=== PATIENT | male | born 1975 | race Caucasian/White ===

== ENCOUNTER 2016-10-09 16:29 | Emergency (ER) | payer SELFPAY ==
[2016-10-09 16:38] VITALS: BP 127/68
[2016-10-09] MEDS ORDERED: Ketorolac INJ* 60 MG/2 ML VIAL IM ONE (16:57)
--- NOTE | 2016-10-09 17:06 | UC ---
Back Pain HPI - HPI Summary HPI Summary: 41 y/o male presents to the urgent care c/o acute lower back pain s/p slipping and falling on the RT hip 2 days ago. His gave him Gabapentin yesterday which helped w/ the pain. This morning Pain was exacerbated when he was mowing the grass. Pain is 8/10 w/o any radiation. Pt denies urinary or fecal incontinence, saddle anesthesia, numbness or tingling over the lower extremities , SOB, chest pain, N/V/D. Pt has not other complains. - History of Current Complaint Chief Complaint: UCBackPain Stated Complaint: BACK INJURY Time Seen by Provider: 10/09/16 16:49 Hx Obtained From: Patient Onset/Duration: Sudden Onset, Lasting Days, Still Present Timing: Constant Severity Initially: Moderate Severity Currently: Moderate Pain Intensity: 8 Pain Scale Used: 0-10 Numeric Character: Sharp - Lower back pain, Spasmodic Aggravating: Movement, Lifting, Bending Alleviating: Rest Associated Signs And Symptoms: Positive: Negative. Negative: Swelling, Redness , Fever, Weakness, Numbness, Tingling, Flank Pain, Bladder Incontinence, Bowel Incontinence, Pain with Weight Bearing - Risk Factors AAA Risk Factors: Negative TAD Risk Factors: Negative Cauda Equina Risk Factors: Negative Epidural Abscess Risk Factors: Negative - Allergies/Home Medications Allergies/Adverse Reactions: Allergies Allergy/AdvReac Type Severity Reaction Status Date / Time No Known Allergies Allergy Verified 11/02/14 17:17 Home Medications: Home Medications Acetaminophen-Caffeine [Excedrin Tension Headache 500-65 mg] 1 tab PO 10/09/16 [ History] PMH/Surg Hx/FS Hx/Imm Hx Other Neurological History: Tension KATZ - Surgical History Surgical History: Yes Surgery Procedure, Year, and Place: inguinal hernia repair as a child. appe in his 20's - Family History Known Family History: Positive: None - Social History Occupation: Employed Full-time Lives: With Family Alcohol Use: None Substance Use Type: Marijuana Substance Use Comment - Amount & Last Used: daily Smoking Status (MU): Heavy Every Day Tobacco Smoker Type: Cigarettes Amount Used/How Often: 1 PPD Length of Time of Smoking/Using Tobacco: 20+ YEARS Review of Systems Constitutional: Negative Skin: Negative Eyes: Negative ENT: Negative Respiratory: Negative Cardiovascular: Negative Gastrointestinal: Negative Genitourinary: Negative Motor: Negative Neurovascular: Negative Musculoskeletal: Other: - Acute lower back pain Neurological: Negative Psychological: Negative All Other Systems Reviewed And Are Negative: Yes Physical Exam Triage Information Reviewed: Yes Appearance: Well-Appearing, No Pain Distress, Well-Nourished, Thin Vital Signs: Initial Vital Signs Temp 99.4 F 10/09/16 16:34 Pulse 69 10/09/16 16:34 Resp 18 10/09/16 16:34 BP 127/68 10/09/16 16:34 Pulse Ox 99 10/09/16 16:34 Vital Signs Reviewed: Yes Eye Exam: Normal Eyes: Positive: Conjunctiva Clear - PERRLA, EOMI, fundi grossly normal ENT Exam: Normal ENT: Positive: Normal ENT inspection, Hearing grossly normal, Pharynx normal, TMs normal Dental Exam: Normal Neck exam: Normal Neck: Positive: Supple, Nontender, No Lymphadenopathy Respiratory Exam: Normal Respiratory: Positive: Chest non-tender, Lungs clear, Normal breath sounds Cardiovascular Exam: Normal Cardiovascular: Positive: RRR, No Murmur, Pulses Normal, Brisk Capillary Refill Abdominal Exam: Normal Abdomen Description: Positive: Nontender, No Organomegaly, Soft. Negative: CVA Tenderness (R), CVA Tenderness (L) Bowel Sounds: Positive: Present Musculoskeletal: Positive: Strength Intact, Other: - BACK: Patient walked into the urgent care room with symmetric ambulation, No signs of limping, antalgic, able to bear weight. No signs of trauma,Point tenderness at the level of S1-S2 w / swelling, no soft tissue or muscle tenderness, positive spasm in the Paraspinal muscles at the same level of the spine more in the RT side. No masses palpated. No CVAT, no flank ecchymosis . No sacroiliac notch tenderness , No saddle anesthesia. Limited ROM due to pain Straight Leg Raise: positive on the RT side lower extremity. Patellar reflexes: brisk, symmetric Muscle strength lower extremities. Dorsiflexion/ plantar flexion of ankles. Lower extremities: Femoral, popliteal, posterior tibial, and dorsalis pedis pulses with in normal, Rectal: Patient refused the exam. Neurological Exam: Normal Psychological Exam: Normal Skin: Positive: rashes - Positive 3 tick bites w/ sorrounding erythema at the upper abdomen. Back Pain Course/Dx - Course Course Of Treatment: 41 y/o male presents to the urgent care c/o acute lower back pain s/p slipping and falling on the RT hip 2 days ago. His gave him Gabapentin yesterday which helped w/ the pain. This morning Pain was exacerbated when he was mowing the grass. Pain is 8/10 w/o any radiation. Pt denies urinary or fecal incontinence, saddle anesthesia, numbness or tingling over the lower extremities, SOB, chest pain, N/V/D. Hx obtained. PE abnormal findings: BACK: Patient walked into the urgent care room with symmetric ambulation, No signs of limping, antalgic, able to bear weight. No signs of trauma,Point tenderness at the level of S1-S2 w/o swelling, no soft tissue or muscle tenderness, positive spasm at the Paraspinal muscles at the same level of the spine , More towqars the RT side, No saddle anesthesia. Limited ROM due to pain.Straight Leg Raise: positive on the RT side lower extremity. Patellar reflexes: brisk, symmetric Muscle strength lower extremities. Dorsiflexion/ plantar flexion of ankles. Lower extremities: Femoral, popliteal, posterior tibial, and dorsalis pedis pulses with in normal limits. Pt given Toradol IM injection to alleviate pain. Pt tolerated well injection and Pt fell better. upper abdomen w/ 3 tick bites w/ sorrounding erythema. -Lubosacral x- ray ordered: Impression:Possible nondisplaced fracture of the lower anterior sacrum and sacrococcegeal junction. 1-Pt Rx Naproxen 500mg PO and Robaxin 500 PO to take home since pharmacy is close now. Rx same medications. Advised wear a back support adn to avoid strenuous exercise or heavy lifting. F/u with DR Llamas in 1-2 days for further evaluation and treatment. 2- Pt w/ multiple tick bites about 2 months ago w/o any prophylactic treatmetn. Pt requested lyme serology and treatment. Pt Rx Doxyxycline PO and advised to take full course of antibiotic despite the result and f/u with PCP for further evaluation and treatment. Pt understood and agreed and left the clinic ambulating w/o any difficulty. - Differential Dx/Diagnosis Differential Diagnosis/HQI/PQRI: Fracture, Herniated Disc, Renal Colic, Strain, Sprain Provider Diagnoses: 1-Acute lower back pain. 2- Tick bites r/o Lyme disease Discharge - Discharge Plan Condition: Stable Disposition: HOME Prescriptions: DOXYcycline CAP(*) [DOXYcycline 100MG CAP(*)] 100 mg PO BID #42 cap Methocarbamol TAB* [Robaxin 500 MG TAB*] 750 mg PO TID PRN #15 tab PRN Reason: Spasms - Back Naproxen TAB* [Naprosyn 250 mg TAB*] 500 mg PO Q8H PRN #30 tab PRN Reason: Pain Patient Education Materials: Acute Low Back Pain (ED), Lyme Disease (ED) Referrals: [facility] [place] [facility] [Outside] Zeke Singh MD [Medical Doctor] - 1 Day (Pt w/ acute back pain s/p fall. X-ray w/ possible non-displaced fracture of the lower sacrum and sacrococcygeal juntion. Please evaluate. Thank you) No Primary Care Phys,NOPCP [Primary Care Provider] - Additional Instructions: 1-Please take medications as instructed to alleviate symptoms of pain and spasm , wear a back support and f/u with Orthopedic Dr Singh in 1-2 days for further evaluation and treatment of possible fracture. 2-Lyme Serology ordered and sent to lab If results abnormal you will get a call from us. Please take full course of antibiotic. F/u wit PCP from the [facility] referral center for further treatment.
--- NOTE | 2016-10-09 17:45 | RAD ---
INDICATION: Low back pain since a fall 2 days earlier COMPARISON: None. TECHNIQUE: 5 views of the lumbar spine were obtained. FINDINGS: The lumbar vertebra are intact and appropriately aligned. The intervertebral disc heights are maintained. On the magnified view of the sacrum there is questionable cortical discontinuity at the lower sacrum and the sacrococcygeal junction. . IMPRESSION: Possible nondisplaced fracture(s) of the lower anterior sacrum and sacrococcygeal junction.
[2016-10-09] MEDS ORDERED: Naproxen TAB* 250 MG PO ONE ×2 (18:12→18:15)
[2016-10-09] MEDS ORDERED: Methocarbamol TAB* 500 MG PO ONE ×2 (18:13→18:22)
== END 2016-10-09 18:33 | disposition home or self-care (01) ==
LOC: UCEAST 16:29
DX: M54.5 Low back pain (principal); S30.860A Insect bite (nonvenomous) of lower back and pelvis, initial encounter; W57.XXXA Bitten or stung by nonvenomous insect and other nonvenomous arthropods, initial encounter; F17.210 Nicotine dependence, cigarettes, uncomplicated; F12.90 Cannabis use, unspecified, uncomplicated
CPT/HCPCS: 72110; 86618; 96372; 99213; A9270-GY; G0463; J1885

== ENCOUNTER 2017-02-03 15:45 | Emergency (ER) | payer OTHER ==
[2017-02-03 16:07] VITALS: BP 140/74
--- NOTE | 2017-02-03 16:20 | UC ---
Throat Pain/Nasal Schuyler HPI - HPI Summary HPI Summary: Pt presents with ST. He tells me that 2 days ago he was "redoing a floor" and using cleaning chemicals without breathing/mask protection. Later that night his throat began to hurt and feel "scratchy". He has not tried anything for the pain and has no other symptoms. He denies recent illness or sick contacts. Denies fever, chills, cough, SOB, pain with breathing, chest pain, abdominal pain, headache, N/V/D/C. - History of Current Complaint Chief Complaint: UCRespiratory Stated Complaint: SORE THROAT Time Seen by Provider: 02/03/17 16:20 Hx Obtained From: Patient Onset/Duration: Sudden Onset Severity: Moderate Pain Intensity: 6 Pain Scale Used: 0-10 Numeric - Allergies/Home Medications Allergies/Adverse Reactions: Allergies Allergy/AdvReac Type Severity Reaction Status Date / Time No Known Allergies Allergy Verified 02/03/17 16:07 Home Medications: Home Medications traMADol TAB* [Ultram*] 50 mg PO PRN 02/03/17 [History] PMH/Surg Hx/FS Hx/Imm Hx Previously Healthy: Yes - Surgical History Surgical History: Yes Surgery Procedure, Year, and Place: inguinal hernia repair as a child. appe in his 20's - Family History Known Family History: Positive: None - Social History Occupation: Employed Full-time Lives: With Family Alcohol Use: None Substance Use Type: Marijuana Substance Use Comment - Amount & Last Used: daily Smoking Status (MU): Current Every Day Smoker Type: Cigarettes Amount Used/How Often: 1 PPD Length of Time of Smoking/Using Tobacco: 20+ YEARS Cessation Counseling: Counseled 3+Min - 10 Min Review of Systems Constitutional: Negative Skin: Negative Eyes: Negative ENT: Sore Throat Respiratory: Negative Cardiovascular: Negative Gastrointestinal: Negative All Other Systems Reviewed And Are Negative: Yes Physical Exam Triage Information Reviewed: Yes Appearance: Well-Appearing, Well-Nourished Vital Signs: Initial Vital Signs Temp 98.2 F 02/03/17 16:04 Pulse 62 02/03/17 16:04 Resp 16 02/03/17 16:04 BP 140/74 02/03/17 16:04 Pulse Ox 99 02/03/17 16:04 Vital Signs Reviewed: Yes Eyes: Positive: Conjunctiva Clear. Negative: Discharge ENT: Positive: Hearing grossly normal, Pharyngeal erythema, TMs normal, Uvula midline. Negative: Nasal congestion, Nasal drainage, TM bulging, TM dull, TM red, Tonsillar swelling, Tonsillar exudate, Trismus, Muffled voice, Hoarse voice , Sinus tenderness Neck: Positive: Supple, Nontender, No Lymphadenopathy Respiratory: Positive: Chest non-tender, Lungs clear, Normal breath sounds, No respiratory distress, No accessory muscle use Cardiovascular: Positive: RRR, No Murmur, Pulses Normal Neurological: Positive: Alert Psychological: Positive: Age Appropriate Behavior Skin: Negative: rashes Throat Pain/Nasal Course/Dx - Course Course Of Treatment: ST s/p exposure to environmental chemical inhalation. Likely more irritant than infectious. POC strep negative. Pt advised to take ibuprofen OTC for pain and try tea with honey to ease throat pain. - Differential Dx/Diagnosis Differential Diagnosis/HQI/PQRI: Peritonsillar Abscess, Pharyngitis, Tonsillitis , URI Provider Diagnoses: Pharyngitis Discharge - Discharge Plan Condition: Stable Disposition: HOME Patient Education Materials: Pharyngitis (ED) Referrals: Colton Mcnulty MD [Primary Care Provider] - Additional Instructions: 1) Ibuprofen 800mg every 6 hours as needed for pain If you develop a fever, SOB, chest pain, new or worsening symptoms - please call your PCP or go to the ED. Your blood pressure was high at todays visit. Please see your primary provider within 4 weeks for recheck and re-evaluation.
== END 2017-02-03 17:03 | disposition home or self-care (01) ==
LOC: UCEAST 15:45
DX: J02.9 Acute pharyngitis, unspecified (principal); Z72.0 Tobacco use; F12.90 Cannabis use, unspecified, uncomplicated
CPT/HCPCS: 87651; 99211; G0463

== ENCOUNTER 2017-12-11 17:18 | Emergency (ER) | payer SELFPAY ==
[2017-12-11] MEDS ORDERED: Ketorolac INJ* 30 MG/ML 1 ML VIAL IM ONE (18:25)
--- NOTE | 2017-12-11 18:25 | UC ---
Shoulder Pain HPI - HPI Summary HPI Summary: 42 y/o male presents to the urgent care c/o pt c/o rt collar bone pain. pt states monday he noticed pain after he lifted a gate. pt states when he got up on monday the pain was worse, and monday pain continued. pt is here to see if he broke his rt collar bone. - History of Current Complaint Chief Complaint: UCUpperExtremity Stated Complaint: SHOULDER INJURY Time Seen by Provider: 12/11/17 18:08 Hx Obtained From: Patient Pain Intensity: 7 - Allergies/Home Medications Allergies/Adverse Reactions: Allergies Allergy/AdvReac Type Severity Reaction Status Date / Time No Known Allergies Allergy Verified 12/11/17 17:40 Home Medications: Home Medications Gabapentin [Neurontin] 100 mg PO 12/11/17 [History] PMH/Surg Hx/FS Hx/Imm Hx - Surgical History Surgical History: Yes Surgery Procedure, Year, and Place: inguinal hernia repair as a child. appy in his 20's - Family History Known Family History: Positive: None - Social History Alcohol Use: None Substance Use Type: Marijuana Substance Use Comment - Amount & Last Used: daily Smoking Status (MU): Heavy Every Day Tobacco Smoker Type: Cigarettes Amount Used/How Often: 1 PPD Length of Time of Smoking/Using Tobacco: 20+ YEARS Physical Exam - Summary Physical Exam Summary: Vital Signs Reviewed: Yes GENERAL: Well-Appearing, No Pain Distress, Well-Nourished male w/o any apparent pain distress Eyes: Positive: Conjunctiva Clear - PERRL,EOMI ENT: Positive: Normal ENT inspection, Hearing grossly normal, Pharyngeal erythema - mild, Nasal drainage - clear, Uvula midline Neck: Positive: Supple, Nontender, No Lymphadenopathy Respiratory: Positive: Chest non-tender, Lungs clear, Normal breath sounds, No respiratory distress Cardiovascular: Positive: RRR, No Murmur, Pulses Normal, Brisk Capillary Refill Abdomen Description: Positive: Nontender, No Organomegaly, Soft. Negative: CVA Tenderness (R), CVA Tenderness (L) Bowel Sounds: Positive: Present Musculoskeletal: LF shoulder: The L shoulder is with/without obvious asymmetry or deformity when compared to the R shoulder. posterior shoulder w/ ecchymosis and bruising, no crepitus. No bony deformity or prominence of humeral head. No erythema, warmth. No Point Tenderness to palpation over the clavicle, or scapula. positive tenderness over Acromioclavicular joint and humeral head with mild swelling, NT to palpation of the bicipital groove . NT to palpation of the muscles of the sternocleidomastoid, pectoralis, biceps/triceps, deltoid, trapezius, . Limited ROM due to pain especially in adduction and abduction.on both passive and active, internal/external rotation, flexion/extension. "empty can and drop arm test unable to perform due to pain. No axillary tenderness or lymphadenopathy. Normal sensation over the deltoid and fingers. Distal motor and neurovascular status is intact. Neurological Exam: Normal Psychological Exam: Normal Skin Exam: Normal Triage Information Reviewed: Yes Vital Signs: Initial Vital Signs Temp 98.4 F 12/11/17 17:36 Pulse 64 12/11/17 17:36 Resp 18 12/11/17 17:36 BP 129/83 12/11/17 17:36 Pulse Ox 100 12/11/17 17:36 Shoulder Course/Dx - Differential Dx/Diagnosis Differential Diagnosis/HQI/PQRI: Arthritis, Contusion, Dislocation, Fracture ( Closed), Rotator Cuff Injury, Sprain, Strain Provider Diagnoses: 1- Rt shoulder sprain. 2-Rt clavicle pain Discharge - Sign-Out/Discharge All imaging exams completed and their final reports reviewed: Yes - Discharge Plan Condition: Stable Disposition: HOME Prescriptions: Ibuprofen TAB* [Motrin TAB* 800 MG] 800 mg PO Q6H PRN #30 tab PRN Reason: Pain Patient Education Materials: Shoulder Sprain (ED) Forms: *Work Release Referrals: Colton Mcnulty MD [Primary Care Provider] - 1 Week Louis Carter MD [Medical Doctor] - 1 Week [facility] [Provider Group] - 1 Week Additional Instructions: 1-Please take medications as directed to alleviate pain and swelling. 2-Please apply ice, keep your shoulder immobilized with the shoulder sling for 3 -4 days and then resume movement slowly 3- Please f/u with Orthopedic Raul or Sports medicine Orthopedic DR or your PCP in 1 week is not improvement of symptoms for further evaluation and treatment. - Billing Disposition and Condition Condition: STABLE Disposition: Home
[2017-12-11 20:06] VITALS: BP 125/77
--- NOTE | 2017-12-12 07:39 | RAD ---
HISTORY: Rt clavicle pain s/p injury COMPARISONS: None VIEWS: 2 , frontal and frontal oblique views of the right clavicle FINDINGS: BONE DENSITY: Normal. BONES: There is no displaced fracture. JOINTS: There is no arthropathy. ALIGNMENT: There is no dislocation. SOFT TISSUES: Unremarkable. OTHER FINDINGS: None. IMPRESSION: NO ACUTE OSSEOUS INJURY. IF SYMPTOMS PERSIST, RECOMMEND REPEAT IMAGING. R0
--- NOTE | 2017-12-12 07:41 | RAD ---
HISTORY: RT shoulder pain s/p injury COMPARISONS: None VIEWS: 4 , Frontal internal rotation, external rotation, outlet, and axillary views of the right shoulder FINDINGS: BONE DENSITY: Normal. BONES: There is no displaced fracture. JOINTS: There is no arthropathy. ALIGNMENT: There is no dislocation. SOFT TISSUES: Unremarkable. OTHER FINDINGS: None. IMPRESSION: NO ACUTE OSSEOUS INJURY. IF SYMPTOMS PERSIST, RECOMMEND REPEAT IMAGING. R0
== END 2017-12-11 20:00 | disposition home or self-care (01) ==
LOC: UCEAST 17:18
DX: S43.401A Unspecified sprain of right shoulder joint, initial encounter (principal); X50.0XXA Overexertion from strenuous movement or load, initial encounter; Y93.9 Activity, unspecified; Y92.9 Unspecified place or not applicable; F17.210 Nicotine dependence, cigarettes, uncomplicated
CPT/HCPCS: 96372; 99213; G0463; J1885

== ENCOUNTER 2018-01-08 16:36 | Emergency (ER) | payer SELFPAY ==
[2018-01-08 16:49] VITALS: BP 129/83
--- NOTE | 2018-01-08 18:40 | UC ---
Throat Pain/Nasal Schuyler HPI - HPI Summary HPI Summary: 42 year old male here with 3 days of sore throat chills and left ear pain. The throat is the worst part. He is able swallow with swallowing makes the pain worse. No wheezes or chest congestion. Minimal rhinorrhea. - History of Current Complaint Chief Complaint: UCRespiratory Stated Complaint: SORE THROAT,EAR PAIN Time Seen by Provider: 01/08/18 18:31 Pain Intensity: 8 - Allergies/Home Medications Allergies/Adverse Reactions: Allergies Allergy/AdvReac Type Severity Reaction Status Date / Time No Known Allergies Allergy Verified 01/08/18 16:49 PMH/Surg Hx/FS Hx/Imm Hx Previously Healthy: Yes - Surgical History Surgical History: Yes Surgery Procedure, Year, and Place: inguinal hernia repair as a child. appy in his 20's - Family History Known Family History: Positive: None - Pt denies FMHX Negative: Diabetes - Social History Alcohol Use: None Substance Use Type: Marijuana Substance Use Comment - Amount & Last Used: daily Smoking Status (MU): Heavy Every Day Tobacco Smoker Type: Cigarettes Amount Used/How Often: 1 PPD Length of Time of Smoking/Using Tobacco: 20+ YEARS Review of Systems Constitutional: Chills Skin: Negative Eyes: Negative ENT: Sore Throat, Ear Ache, Nasal Discharge Respiratory: Negative Cardiovascular: Negative Gastrointestinal: Negative Motor: Negative Neurovascular: Negative Musculoskeletal: Negative Neurological: Negative Psychological: Negative Is Patient Immunocompromised?: No All Other Systems Reviewed And Are Negative: Yes Physical Exam Triage Information Reviewed: Yes Appearance: No Pain Distress, Well-Nourished, Ill-Appearing - MILD Vital Signs: Initial Vital Signs Temp 99.6 F 01/08/18 16:46 Pulse 71 01/08/18 16:46 Resp 18 01/08/18 16:46 BP 129/83 01/08/18 16:46 Pulse Ox 98 01/08/18 16:46 Vital Signs Reviewed: Yes Eye Exam: Normal Eyes: Positive: Conjunctiva Clear ENT: Positive: Pharyngeal erythema, Nasal congestion, Nasal drainage, TMs normal , Uvula midline. Negative: Tonsillar swelling, Tonsillar exudate, Muffled voice Neck exam: Normal Neck: Positive: Supple Respiratory: Positive: Lungs clear, Normal breath sounds, No respiratory distress Cardiovascular: Positive: RRR Musculoskeletal Exam: Normal Musculoskeletal: Positive: Strength Intact, ROM Intact Neurological Exam: Normal Neurological: Positive: Alert, Muscle Tone Normal Psychological Exam: Normal Psychological: Positive: Age Appropriate Behavior Skin Exam: Normal Throat Pain/Nasal Course/Dx - Course Course Of Treatment: DISCUSSED VIRAL VERSES BACTERIAL INFECTION AND THE ROLE OF ANTIBIOTICS. THE PATIENT WISHES TO BE ON ANTIBIOTICS AT THIS TIME. The patient' s pharynx is strawberry red and does appear to be strep pharyngitis. We discussed getting a strep test patient prefers not to and prefers to be on antibiotics at this time. - Differential Dx/Diagnosis Provider Diagnoses: PHARYNGITIS Discharge - Sign-Out/Discharge Documenting (check all that apply): Patient Departure All imaging exams completed and their final reports reviewed: No Studies - Discharge Plan Condition: Stable Disposition: HOME Prescriptions: Amoxicillin/Clavulanate TAB* [Augmentin TAB 875*] 875 mg PO BID #20 tab Patient Education Materials: Pharyngitis (ED) Referrals: Colton Mcnulty MD [Primary Care Provider] - Additional Instructions: FOLLOW UP WITH YOUR DOCTOR IF NOT COMPLETELY IMPROVED. GET RECHECKED FOR ANY WORSENING OF YOUR CONDITION OR QUESTIONS OR CONCERNS. - Billing Disposition and Condition Condition: STABLE Disposition: Home
== END 2018-01-08 18:50 | disposition home or self-care (01) ==
LOC: UCEAST 16:36
DX: J02.9 Acute pharyngitis, unspecified (principal); H92.02 Otalgia, left ear; F17.210 Nicotine dependence, cigarettes, uncomplicated
CPT/HCPCS: 99212; G0463

== ENCOUNTER 2019-02-03 15:08 | Emergency (ER) | payer SELFPAY ==
[2019-02-03 15:39] VITALS: BP 116/74
--- NOTE | 2019-02-03 15:51 | UC ---
Lower Extremity/Ankle HPI - HPI Summary HPI Summary: rolled right ankle 2 night s ago, pain lateral ankle swelling and bruising - History of Current Complaint Chief Complaint: UCLowerExtremity Stated Complaint: FOOT INJURY Time Seen by Provider: 02/03/19 15:46 Hx Obtained From: Patient Onset/Duration: Sudden Onset, Lasting Days - 2, Still Present Pain Intensity: 4 Pain Scale Used: 0-10 Numeric Aggravating Factor(s): Standing, Ambulation Alleviating Factor(s): Rest, Elevation Able to Bear Weight: Yes - with pain and limp - Allergies/Home Medications Allergies/Adverse Reactions: Allergies Allergy/AdvReac Type Severity Reaction Status Date / Time No Known Allergies Allergy Verified 02/03/19 15:39 Home Medications: Home Medications NK [No Home Medications Reported] 02/03/19 [History Confirmed 02/03/19] PMH/Surg Hx/FS Hx/Imm Hx Previously Healthy: Yes - Surgical History Surgical History: Yes Surgery Procedure, Year, and Place: inguinal hernia repair as a child. appy in his 20's - Family History Known Family History: Positive: None - Pt denies FMHX Negative: Diabetes - Social History Occupation: Employed Full-time Lives: With Family Alcohol Use: None Substance Use Type: Marijuana Substance Use Comment - Amount & Last Used: daily Smoking Status (MU): Heavy Every Day Tobacco Smoker Type: Cigarettes Amount Used/How Often: 1 PPD Length of Time of Smoking/Using Tobacco: 20+ YEARS Cessation Counseling: Counseled 10+ Min Review of Systems All Other Systems Reviewed And Are Negative: Yes Constitutional: Positive: Negative Skin: Positive: Negative Eyes: Positive: Negative ENT: Positive: Negative Respiratory: Positive: Negative Cardiovascular: Positive: Negative Gastrointestinal: Positive: Negative Genitourinary: Positive: Negative Motor: Positive: Decreased ROM - right ankle Neurovascular: Positive: Negative Musculoskeletal: Positive: Arthralgia - lateral right ankle, Edema - right foot /ankle Neurological: Positive: Negative Psychological: Positive: Negative Is Patient Immunocompromised?: No Physical Exam Triage Information Reviewed: Yes Appearance: Well-Appearing, No Pain Distress, Well-Nourished Vital Signs: Initial Vital Signs Temp 98.8 F 02/03/19 15:29 Pulse 64 02/03/19 15:29 Resp 18 02/03/19 15:29 BP 116/74 02/03/19 15:29 Pulse Ox 99 02/03/19 15:29 Vital Signs Reviewed: Yes Eye Exam: Normal Eyes: Positive: Conjunctiva Clear ENT Exam: Normal ENT: Positive: Normal ENT inspection, Hearing grossly normal. Negative: Nasal congestion, Trismus, Muffled voice, Hoarse voice Dental Exam: Normal Neck exam: Normal Neck: Positive: Supple, Nontender, No Lymphadenopathy Respiratory Exam: Normal Respiratory: Positive: Chest non-tender, No respiratory distress, No accessory muscle use Cardiovascular Exam: Normal Cardiovascular: Positive: RRR, Pulses Normal, Brisk Capillary Refill Musculoskeletal Exam: Other Musculoskeletal: Positive: Strength Intact, ROM Limited @ - right ankle, Edema @ - right foot and ankle Neurological Exam: Normal Neurological: Positive: Alert, Muscle Tone Normal Psychological Exam: Normal Skin Exam: Normal Diagnostics - Radiology No standard instances Radiology Interpretation Completed By: Radiologist - possible non displaced fx righ fibula Lower Extremity Course/Dx - Course Course Of Treatment: rice, cam boot, crutches, non weight bearing until cleared by ortho--ibuprofen for pain - Differential Dx/Diagnosis Provider Diagnosis: Fibula fracture, Nicotine dependence Discharge ED - Sign-Out/Discharge Documenting (check all that apply): Patient Departure All imaging exams completed and their final reports reviewed: Yes - Discharge Plan Condition: Stable Disposition: HOME Patient Education Materials: Ibuprofen (By mouth), Crutch Instructions (ED), Ankle Fracture (ED), R.I.C.E. Treatment (ED) Forms: *Work Release Referrals: Doug Cedeno MD [Medical Doctor] - 2 Days (2) Additional Instructions: stay non weight bearing until cleared by orthopedic doctor - Billing Disposition and Condition Condition: STABLE Disposition: Home
== END 2019-02-03 17:15 | disposition home or self-care (01) ==
LOC: UCEAST 15:08
DX: S82.401A Unspecified fracture of shaft of right fibula, initial encounter for closed fracture (principal); F17.210 Nicotine dependence, cigarettes, uncomplicated; X50.9XXA Other and unspecified overexertion or strenuous movements or postures, initial encounter; Y92.9 Unspecified place or not applicable
CPT/HCPCS: 99212; G0463